=== PATIENT | female | born 1980 | race Two or more races ===

== ENCOUNTER 2016-08-19 01:17 | Emergency (ER) | payer MEDICAID ==
[~2016-08-19] VITALS: Ht 157.5 cm; Wt 49.9 kg
[~2016-08-19 01:17] MED LIST: BACITRACIN1 APPLIC TOPIC; BENTYL10 MG ORAL; KLONOPIN1 MG ORAL; ONDANSETRON ODT8 MG PO; ZOLOFT25 MG ORAL
[2016-08-19] MEDS ORDERED: Metoclopramide 10mg/2ml Inj ONE (01:32)
[2016-08-19] MEDS ORDERED: Morphine Sulfate 4mg/ml Inj IVP ONE (01:45)
[2016-08-19 02:01] VITALS: BP 126/71
--- NOTE | 2016-08-19 02:03 | Emergency Room Report ---
History of Present Illness General Chief Complaint: Abdominal Pain Source: Patient Present Illness HPI Is a 36-year-old female with no significant past medical history. She presents with chief complaint abdominal pain with vomiting and diarrhea. Onset 4 hours ago. Not better with marijuana. Denies any fever or chills. Pain is crampy in nature. 10 out of 10. Vomiting is nonbloody and nonbilious. Diarrhea is watery. No localizing pain. Similar symptoms about 3 years ago. Allergies: Coded Allergies: No Known Allergies (Unverified , 01/06/13) Patient History Past Medical History: see triage record, old chart reviewed Past Surgical History: none Pertinent Family History: none Social History: Denies: smoking Now: No Immunizations: other Reviewed Nursing Documentation: PMH: Agreed, PSxH: Agreed Nursing Documentation-PM Past Medical History: No Stated History History Of Psychiatric Problem: Yes - ANXIETY Review of Systems Eye: Denies: blurred vision, eye pain ENT: Denies: ear pain, nose congestion, throat swelling Respiratory: Denies: cough, shortness of breath Cardiovascular: Denies: chest pain, palpitations Gastrointestinal: Reports: abdominal pain, diarrhea, nausea, vomiting Musculoskeletal: Denies: back pain, joint pain Skin: Denies: rash Neurological: Denies: headache, numbness Endocrine: Denies: increased thirst, increased urine Hematologic/Lymphatic: Denies: easy bruising All Other Systems: negative except mentioned in HPI Physical Exam Vital Signs Date Time Temp Pulse Resp B/P Pulse Ox O2 Delivery O2 Flow Rate FiO2 08/19/16 01:20 96.3 89 20 119/70 100 Room Air vitals normal Sp02 EP Interpretation: reviewed, normal General Appearance: well appearing, alert, moderate distress - From pain Head: normocephalic, atraumatic Eyes: bilateral eye EOMI, bilateral eye PERRL ENT: hearing grossly normal, normal pharynx Neck: full range of motion, supple, no meningismus Respiratory: chest non-tender, lungs clear, normal breath sounds Cardiovascular #1: regular rate, rhythm, no murmur Gastrointestinal: no mass, no organomegaly, no bruit, non-distended, abnormal bowel sounds - Hypoactive, tenderness - Diffuse, decreased bowel sounds Musculoskeletal: back normal, gait/station normal, normal range of motion Neurologic: oriented x3, responsive Psychiatric: mood/affect normal Skin: warm/dry Medical Decision Making Diagnostic Impression: Primary Impression: Nausea vomiting and diarrhea Additional Impressions: Abdominal pain Qualified Codes: R10.84 - Generalized abdominal pain Dehydration ER Course Patient presents with vomiting and diarrhea. Also with abdominal cramps. Abdominal exam is benign. No evidence of acute abdomen or obstruction. She received IV fluid and antinausea medication. She felt better. This may be cyclic vomiting syndrome secondary to marijuana use. Lab Results Impression labs unremarkable Last Vital Signs Date Time Temp Pulse Resp B/P Pulse Ox O2 Delivery O2 Flow Rate FiO2 08/19/16 01:20 96.3 89 20 119/70 100 Room Air Status: improved Disposition: HOME, SELF-CARE Condition: Stable Scripts Promethazine Hcl* (PHENERGAN*) 25 Mg Tablet 25 MG ORAL Q6H, #15 TAB 0 Refills Prov: PORTIA DARDEN M.D. 08/19/16 Referrals: [facility],REFERRING (PCP) Additional Instructions: Followup with your DrJayne in 2-3 days. Return if symptom worsen. PORTIA DARDEN M.D. Aug 19, 2016 02:03
[2016-08-19 02:06] LABS: BASOPHILS % (AUTO) 0.7 % (0.0-2.0); EOSINOPHILS % (AUTO) 0.2 % (0.0-3.0); LYMPHOCYTES % (AUTO) 12.6 % (20.0-45.0); MEAN CORPUSCULAR HEMOGLOBIN 31.7 PG (27.0-31.0); MEAN CORPUSCULAR HGB CONC 34.2 G/DL (32.0-36.0); MEAN CORPUSCULAR VOLUME 93 FL (80-99); MEAN PLATELET VOLUME 8.2 FL (6.5-10.1); MONOCYTES % (AUTO) 3.6 % (1.0-10.0); NEUTROPHILS % (AUTO) 82.8 % (45.0-75.0); PLATELET COUNT 235 K/UL (150-450); RED BLOOD COUNT 4.57 M/UL (4.20-5.40); RED CELL DISTRIBUTION WIDTH 10.6 % (11.6-14.8); WHITE BLOOD COUNT 12.4 K/UL (4.8-10.8)
[2016-08-19 02:07] LABS: APPEARANCE,URINE CLOUDY; KETONES,URINE 2+ (NEGATIVE); LEUKOCYTE ESTERASE ,URINE NEGATIVE (NEGATIVE); NITRITE,URINE NEGATIVE (NEGATIVE); PH,URINE 8 (4.5-8.0); PROTEIN,URINE NEGATIVE (NEGATIVE); UROBILINOGEN,URINE NORMAL MG/DL (0.0-1.0)
[2016-08-19 02:17] LABS: ALANINE AMINOTRANSFERASE 16 U/L (3-33); ALBUMIN/GLOBULIN RATIO 1.6 (1.0-2.7); ANION GAP 23 (5-15); ASPARTATE AMINO TRANSFERASE 27 U/L (5-40); CALCIUM 9.1 mg/dL (8.6-10.2); CARBON DIOXIDE 20 mEQ/L (20-30); CHLORIDE 99 mEQ/L (98-107); CREATININE 0.7 mg/dL (0.5-0.9); GLOMERULAR FILTRATION RATE > 60 mL/min (>60); HEMOLYSIS 7; LIPASE 82 U/L (< 60); POTASSIUM 3.1 mEQ/L (3.4-4.9); SODIUM 142 mEQ/L (135-145)
[2016-08-19] MEDS ORDERED: PHENERGAN25 M1 ORAL (03:36)
[2016-08-19 03:41] VITALS: BP 111/77
[2016-08-19] MEDS ORDERED: Metoclopramide 10mg/2ml Inj IVP ONE (03:45)
[2016-08-19 04:05] VITALS: BP 111/77
== END 2016-08-19 04:12 | disposition home or self-care (01) ==
LOC: EMR 01:50
DX: R11.2 Nausea with vomiting, unspecified (principal); R10.84 Generalized abdominal pain; E86.0 Dehydration; F41.9 Anxiety disorder, unspecified
CPT/HCPCS: 36415; 80053; 80300; 81003; 81025; 83690; 85025; 96360; 96361; 96374; 96375; 99283; J2270; J2405; J2765

== ENCOUNTER 2020-03-16 19:11 | Emergency (ER) | payer SELFPAY ==
[~2020-03-16] VITALS: Ht 152.4 cm; Wt 52.2 kg
[~2020-03-16 19:11] MED LIST changes: +PHENERGAN25 M1 ORAL
[2020-03-16] MEDS ORDERED: Tetanus/Diptheria/Pertussis IM ONE (19:30)
[2020-03-16 19:40] VITALS: BP 127/81
--- NOTE | 2020-03-16 19:46 | Emergency Room Report ---
History of Present Illness General Chief Complaint: Laceration Source: Patient Present Illness HPI The patient states that she was putting on her shoes and when she stood up she did not realize the cabinet was right above her and she hit the top of her head on the edge of the cabinet. She has a Laceration. She denies loss of consciousness. She denies headache or neck pain. She denies nausea or vomiting. She has no other injuries or complaints. Allergies: Coded Allergies: No Known Allergies (Unverified , 01/06/13) COVID-19 Screening Contact w/high risk pt: No Experienced COVID-19 symptoms?: No COVID-19 Testing performed [employer]ATOR: No Patient History Past Medical History: none Social History: Denies: smoking, alcohol use, drug use Last Menstrual Period: 02/25/20 Now: No Reviewed Nursing Documentation: PMH: Agreed; PSxH: Agreed Nursing Documentation-PMH Past Medical History: No Stated History Review of Systems All Other Systems: negative except mentioned in HPI Physical Exam Vital Signs Date Time Temp Pulse Resp B/P (MAP) Pulse Ox O2 Delivery O2 Flow Rate FiO2 03/16/20 19:16 97.9 58 18 127/81 (96) 97 Room Air Sp02 EP Interpretation: reviewed, normal General Appearance: no apparent distress, alert, GCS 15, non-toxic Head: normocephalic, other - 1cm scalp laceration, just through skin, non- gaping. Eyes: bilateral eye normal inspection, bilateral eye PERRL ENT: hearing grossly normal, normal pharynx, no angioedema, normal voice Neck: normal inspection, full range of motion Respiratory: no respiratory distress, no retraction, no accessory muscle use, speaking full sentences Rectal: deferred Musculoskeletal: normal inspection, normal range of motion, gait/station normal, non-tender Neurologic: alert, motor strength/tone normal, oriented x3, sensory intact, responsive, speech normal Psychiatric: judgement/insight normal, memory normal, mood/affect normal, no suicidal/homicidal ideation Skin: other - See above in head exam. Procedures Laceration/Wound Repair Laceration/Wound Repair : Consent: Verbal Wound Location: head Wound's Depth, Shape: superficial Wound Length (cm): 1 Wound Explored: clean Irrigated w/ Saline (ccs): 500 Wound Repaired With: Dermabond Patient Tolerated: Well Complications: None Medical Decision Making Diagnostic Impression: Primary Impression: Scalp laceration ER Course The patient has a tiny non-gaping scalp laceration on the top of her head. I offered the patient just topical bacitracin as a suspect that this would heal fine without intervention. However, patient reduced requested some closure. Therefore, I did use Dermabond to provide a barrier and full closure. This patient has a minor head injury. There are no red flags on physical exam that would make me concerned for intracranial bleed. This patient is otherwise h ealthy and is not on any anticoagulation. The mechanism was minor therefore I do not feel this patient needs head imaging. The patient was given close return precautions and followup instructions. Of note: The patient does not remember when she last received her tetanus vaccination. Therefore, she was given a Tdap immunization. Last Vital Signs Date Time Temp Pulse Resp B/P (MAP) Pulse Ox O2 Delivery O2 Flow Rate FiO2 03/16/20 19:16 97.9 58 18 127/81 (96) 97 Room Air Status: improved Disposition: HOME, SELF-CARE Condition: Improved Marian Brar DO Mar 16, 2020 19:46
[2020-03-16 20:00] VITALS: BP 118/12
== END 2020-03-16 20:00 | disposition home or self-care (01) ==
LOC: EMR 19:45
DX: S01.01XA Laceration without foreign body of scalp, initial encounter (principal); W22.8XXA Striking against or struck by other objects, initial encounter; Y93.89 Activity, other specified; Y92.019 Unspecified place in single-family (private) house as the place of occurrence of the external cause
CPT/HCPCS: 90471; 90715; 99283